=== PATIENT | male | born 1965 | race Caucasian/White ===

== ENCOUNTER 2021-04-04 07:12 | Day surgery (SDC) | payer OTHER ==
[~2021-04-04] VITALS: Ht 172.7 cm; Wt 75.0 kg
[2021-04-04] VITALS (7 sets, daily range): BP systolic 110–135; BP diastolic 63–83
--- NOTE | 2021-04-04 07:45 | NUR ---
PT AMBULATORY TO ROOM 273 ACCOMPANIED BY ANR NURSE. CONSENT OBTAINED FOR ANR PROCEDURE. VS OBTAINED. DR EDWARDS NOTIFED. NEW ORDERS RECEIVED. ADMISSION ASSESSMENT COMPLETED AT THIS TIME. IV STARTED. LABS OBTAINED. SENT TO LAB FOR REFERENCE. PT ORIENTED TO ROOM AND UNIT AND CALL LIGHT SYSTEM. CALL LIGHT IN REACH. WILL CONTINUE TO MONITOR.
[2021-04-04 08:44] LABS: ALBUMIN 4.5 g/dL (3.2-5.0); ALKALINE PHOSPHATASE 76 u/l (38-126); ANION GAP 13 (6-22 (CALC)); BILIRUBIN, TOTAL 1.2 mg/dL (0.0-1.4); BUN 11 mg/dL (9-20); BUN/CREATININE RATIO 13 (12-20 (CALC)); CARBON DIOXIDE 26 mmol/l (22-30); CHLORIDE 104 mmol/l (95-108); CREATININE 0.8 mg/dL (0.7-1.3); GFR > 60 ML/MIN (>=60 (CALC)); GFR FOR AFR.AMER. > 60 ML/MIN (>=60 (CALC)); SGOT/AST 34 u/l (17-59); SODIUM 139 mmol/l (137-146)
[2021-04-04 08:46] LABS: HEMATOCRIT 51.6 % (39.0-50.0); HEMOGLOBIN 16.2 g/dl (14.0-18.0); IMMATURE GRANULOCYTES 0.1 % (0.0-5.0); MEAN CELL VOLUME 81.4 fL CALC (80.0-100.0); MEAN CORPUSCULAR HGB 25.6 pG CALC (26.0-32.0); MEAN CORPUSCULAR HGB CONC 31.4 g/dL CAL (32.0-36.0); NEUT# 7.8 thou/uL (1.82-7.42); RED BLOOD COUNT 6.34 mill/uL (4.70-6.10); RED CELL DISTRI WIDTH 15.9 % (11.5-15.5)
[2021-04-04] MEDS ORDERED: CLONAZEPAM1 MG PO (09:47)
--- NOTE | 2021-04-04 10:00 | NUR ---
SUSY REASSESSED. MICHELLE NOTIFEIED. NEW ORDERS RECEIVED
--- NOTE | 2021-04-04 11:50 | NUR ---
PT TO ANR PROCEDURE VIA BED
--- NOTE | 2021-04-04 17:46 | NUR ---
PT RETURNED TO FLOOR FROM PROCEDURE VIA BED IN STABLE CONDITION ACCOMPANIED BY ANR STAFF
--- NOTE | 2021-04-04 20:00 | NUR ---
PT HAS BEEN RESTING QUIETLY SINCE START OF SHIFT. REPORT RECEIVED FROM OFFGOING DAY SHIFT. PTIS NOTEDTO HAVE MIXED CONTINENCE. PT HAS A SMALL LOOSE BM IN BRIEF, PT CLEANSED AND NEW BRIEF APPLIED. PT HAS BEEN VOIDING IN URINAL WHEN HE CAN MAKE IT. PT IS ABLE TO MAKE NEEDS KNOWN. SLIGHT DIAPHORESIS NOTED, MINIMAL RESTLESSNESS. SAFETY PRECAUTIONS IN PLACE, BED IN LOWPOSITION, CALL LIGHT WITHIN REACH, BED ALARM ACTIVATED. VITAL SIGNS HAVE REMAINED WNL. NO S/S OF DISTRESS NOTED. WILL CONTINUE TO MONITOR
--- NOTE | 2021-04-05 00:18 | NUR ---
PT RESTING QUIETLY IN BED WITH HIS EYES CLOSED. MINIMAL DIAPHORESIS NOTED, HEAD REFRIGERATING ENGINEER AWARE. BREATHING EVEN AND UNLABORED. PT REQUESTING SUCTIONING FOR PHLEM, MINIMAL PHLEM NOTED WITH SUCTIONING. PT C/O OF STOMACH CRAMPING, HEAD REFRIGERATING ENGINEER MADE AWARE, IV ZOFRAN ADMINSTERED PER ORDER. PT TOOK HIS PO MEDS ASSCHEDULED. DENIES PAIN. B/P PRIOR TO MED ADMINSTRATION WAS SLIGHTLY LOW, PER HEAD REFRIGERATING ENGINEER HOLD CLONIDINE. WILL MONITOR. SAFETY PRECAUTIONS ARE IN PLACE, BED IN LOWEST POSITION, CALLLIGHT WITHIN REACH, BED ALARM ACTIVATED.
[2021-04-05 04:00] VITALS: BP 100/60
--- NOTE | 2021-04-05 04:40 | NUR ---
PT IN BED RESTING QUIETLY. PTAWOKE WITHOUT DIFFICULTY TO TAKE MEDICATIONS. C/O STOMACH PAIN,ADVISEDPTTO WAIT FOR THE MEDICATION TO KICK IN. PT ALERT AND ORIENTED. ATIVAN ADMINSTERED VIA IV FOR RRESTLESSNESS/ANXIETY. PT UTILIZED URINAL WITH NURSE ASSISTANCE. SAFETY PRECAUTIONS REMAIN IN PLACE, BED IN LOW POSITION, CALLLIGHT WITHIN REACH, BED ALARM ON. WILL CONTINUE TO MONITOR.
[2021-04-05 06:38] LABS: ANION GAP 9 (6-22 (CALC)); BUN 13 mg/dL (9-20); BUN/CREATININE RATIO 15 (12-20 (CALC)); CARBON DIOXIDE 27 mmol/l (22-30); CHLORIDE 108 mmol/l (95-108); CREATININE 0.8 mg/dL (0.7-1.3); GFR > 60 ML/MIN (>=60 (CALC)); GFR FOR AFR.AMER. > 60 ML/MIN (>=60 (CALC)); MAGNESIUM 1.8 mg/dL (1.6-2.3); POTASSIUM 4.1 mmol/l (3.5-5.1); SODIUM 140 mmol/l (137-146)
--- NOTE | 2021-04-05 07:00 | NUR ---
PT REPORT RECEIVED FROM NIGHT NURSE
--- NOTE | 2021-04-05 08:00 | NUR ---
PT WAS FOUND RESTING IN BED IN SEMI-TODD'S POSITION;PT AROUSED TO VERBAL STIMULI;VS AND ASSESSMENT WERE COMPLETED;HEART SOUNDS ARE REGULAR IN RATE AND RHYTHM;LUNG SOUNDS ARE CLEAR;RESPIRATIONS ARE EVEN AND UNLABORED ON O2@2L VIA NC;ABDOMEN IS SOFT AND NON-TENDER;BS ARE ACTIVE IN ALL QUADRANTS;PT HAD MODERATE LOOSE BOWEL MOVEMENT WELL;#20G IV IN RH IS RUNNING LR@60ML/HR;IV SITE IS PATENT AND APPEARS FREE OF COMPLICATIONS AT THIS TIME;SAFETY PRECAUTIONS IN PLACE;BED ALARM ON AND IN LOWEST POSITION;CALL LIGHT WITHIN REACH;PT ENCOURAGED TO CALL WITH ANY NEEDS OR CONCERNS;WILL CONTINUE TO MONITOR.
[2021-04-05 09:00] VITALS: BP 91/53
--- NOTE | 2021-04-05 09:00 | NUR ---
PT MORNING MEDS WERE GIVEN;BP WAS LOW 91/53, CARMELITA NUNO AWARE AND REQUESTED CLONIDINE BE HELD AT THIS TIME;O2 WAS REMOVED BY PT, O2 SATS WERE 96% ON RA;RESPIRATIONS WERE EVEN AND UNLABORED;PT RESTING COMFORTABLY;BED ALARM ON;WILL CONTINUE TO MONITOR
--- NOTE | 2021-04-05 12:00 | NUR ---
PT WAS RESTING COMFORTABLY IN BED EATING SOME LUNCH;PT EXPRESSED NO NEEDS OR CONCERNS AT THIS TIME;PT IS BEING PREPARED FOR DISCHARGE TODAY;SAFETY PRECAUTIONS IN PLACE;BED ALARM ON AND IN LOWEST POSITION;CALL LIGHT WTIHIN REACH;WILL CONTINUE TO MONITOR.
--- NOTE | 2021-04-05 12:15 | NUR ---
AT BEDSIDE DISCUSSING POC WITH PT;
--- NOTE | 2021-04-05 14:14 | NUR ---
Discharge instructions given. Patient verbalizes understanding of same. Discharged in stable condition via Wheelchair to Home with family. All belongings sent with pt. DISCHARGE PACKET WAS GIVEN TO PT; AND CARMELITA NUNO DISCUSSED DISCHARGE INSTRUCTIONS WITH PT;SIGNATURE WAS OBTAINED;IV WAS REMOVED WITH NO COMPLICATIONS AND CATHETER INTACT;PT WILL BE TRANSPORTED HOME WITH FAMILY PT WAS TRANSPORTED TO [facility] IN STABLE CONDITION VIA ACCOMPANIED BY ANR STAFF;ALL PT BELONGINGS WERE SENT WITH PT;
== END 2021-04-05 14:14 | disposition home or self-care (01) | DRG 897 ==
LOC: ANR 07:12 → MS2 07:16 → ANR 11:45
PROVIDERS: Nurse Practitioner; ATTEND Anesthesiology
DX: F11.20 Opioid dependence, uncomplicated (principal)
CPT/HCPCS: J2060; J2354